=== PATIENT | male | born 1995 | race Caucasian/White ===

== ENCOUNTER 2018-03-07 16:52 | Emergency (ER) | payer OTHER ==
[~2018-03-07] VITALS: Ht 177.8 cm; Wt 64.0 kg
[2018-03-07 16:54] VITALS: TEMP 36.4; Ht 177.8 cm; Wt 64.0 kg
[2018-03-07] MEDS ORDERED: MUPIROCIN 2% OINT 22 GM TUBE EXT STA (17:13)
[2018-03-07] MEDS ORDERED: OXYMETAZOLINE HCL 0.05% NA SPR 15 ML BTL ONE (17:15)
[2018-03-07] MEDS ORDERED: AMOX500C3 PO (17:21)
[2018-03-07] MEDS ORDERED: NAPR-1169 PO (17:25)
[2018-03-07] MEDS ORDERED: PSEU60TA80 PO (17:28)
--- NOTE | 2018-03-07 17:29 | EMERGENCY ROOM VISIT NOTE ---
History First contact with patient: 17:01 Chief Complaint: NOSE BLEED (MINOR) Stated Complaint: NOSEBLEEDS History of Present Illness The patient is a 22 year old male who presents to the Emergency Room with complaints of frequent epistaxis for the last week. The patient is currently being treated for influenza and strep throat. He is taking amoxicillin and Tamiflu. His flulike symptoms have dramatically improved. The nosebleeds are mainly from the left side and particularly at night. He has been blowing out big clots. He denies any dizziness or lightheadedness. He is not on any blood thinners. No difficulty breathing. Review of Systems 6 system review negative. Please see pertinent positives in the history of present illness section. Past Medical/Surgical History Otherwise healthy Social History Smoking Status: Never Smoker Occupation Status: [employer] student Current/Historical Medications Scheduled Amoxicillin (Amoxil), 500 MG PO BID Pseudoephedrine-Guaifenesin (Mucinex D), 1 TAB PO DAILY Scheduled PRN Dextromethorphan-Phenylephrine (Vicks Dayquil Cold & Flu), 5-10 ML PO BID PRN for COLD & FLU Naproxen (Naprosyn), 500 MG PO TID PRN for Pain Physical Exam Vital Signs Date Time Temp Pulse Resp B/P (MAP) Pulse Ox O2 Delivery O2 Flow Rate FiO2 03/07/18 17:35 83 18 105/70 97 03/07/18 16:54 36.4 97 16 121/78 96 Room Air Physical Exam VITALS: Vitals are noted on the nurse's note and reviewed by myself. Vital signs stable. GENERAL: 22-year-old male, in no acute distress, nondiaphoretic, well-developed well-nourished. SKIN: The skin was without rashes, erythema, edema, or bruising. HEAD: Normocephalic atraumatic. EYES: Pupils equal round and reactive to light and accommodation. Conjunctivae without injection, sclerae without icterus. Extraocular movements intact. NOSE: Turbinates are mildly inflamed bilaterally. Area of friability noted in the left anterior septum. No active bleeding. There is also a smaller area of friability noted on the right anterior septum. No active bleeding bilaterally. No septal hematoma. MOUTH: Mucous membranes moist. Tonsils are moderately enlarged. No exudate bilaterally. Pharynx without erythema or exudate. Uvula midline. Airway patent. Tongue does not deviate. NECK: Supple without nuchal rigidity. Lymphadenopathy in the anterior and posterior cervical chain bilaterally. Cervical spine is nontender. No JVD. MUSCULOSKELETAL: Strength 5/5 throughout. NEURO: Patient was alert and oriented to person place and time. Normal sensation to touch. No focal neurological deficits. Medical Decision & Procedures Medications Administered Medications (Trade) Dose Ordered Sig/Bonifacio Route Start Time Stop Time Status Last Admin Dose Admin Oxymetazoline HCl (Afrin 0.05% Nasal Dennis) 1 sprays NOW ONCE NA 03/07/18 17:15 03/07/18 17:16 DC 03/07/18 17:27 1 SPRAYS Mupirocin (Bactroban 2% Oint) 1 appln ONE STAT EXT 03/07/18 17:13 03/07/18 17:14 DC 03/07/18 17:27 1 APPLN ED Course The patient was seen and examined I thoroughly reviewed discharge instructions. They are comfortable being discharged home. The patient was given Afrin and Bactroban to go Discharge instructions were reviewed, and he was discharged in good condition Medical Decision Differential diagnosis: Anterior versus posterior epistaxis, septal hematoma, sinusitis, coagulopathy This patient is a 22-year-old male that presents to the emergency department with frequent nosebleeds in the setting of being treated for influenza and strep pharyngitis. On exam, he had 2 areas of friability in the anterior septum. There is no active bleeding. The patient was counseled on sleeping with a humidifier. He will also initiate Afrin protocol at home for further bleeding. For prevention purposes, the patient was given Bactroban to apply to the nares twice daily. He was also given the name of an ENT doctor for follow- up. He was comfortable with this plan, and will return with any new concerns including uncontrolled bleeding. This chart was completed in part utilizing [employer] Speech Voice Recognition software. Attempts were made to minimize the grammatical errors, random word insertions, pronoun errors and incomplete sentences. Any formal questions or concerns about the content, text or information contained within the body of this dictation should be directly addressed to the provider for clarification. Impression Primary Impression: Epistaxis Departure Information Dispostion Home / Self-Care Condition GOOD Referrals No Doctor, Assigned (PCP) Malcolm Amaro MD Patient Instructions My [facility] Additional Instructions You have been evaluated in the emergency department for frequent nosebleeds. This is likely due to your recent illness. If the bleeding happens again, please blow out all of the clots from the nose. Immediately apply 2 sprays of Afrin in each nostril followed by the nasal clip. Please keep it in place and sit in an upright position for 30 minutes. If this does not stop the bleeding, please return to the emergency department. For prevention, please sleep with a humidifier. Please also apply Bactroban ointment to the nostrils twice daily. Please follow-up with an ear nose and throat doctor if the nosebleeds continue Do not hesitate to return to the ER with any new concerns It was a pleasure participating in your care today
[2018-03-07] MEDS ORDERED: DEXT1LIQ58 PO (17:32)
[2018-03-07 17:35] VITALS: BP 105/70; PULSE 83; O2SAT 97
== END 2018-03-07 17:36 | disposition home or self-care (01) ==
LOC: C.EDB 16:55 → C.EDD 17:36
DX: R04.0 Epistaxis (principal)